=== PATIENT | male | born 1980 | race Caucasian/White ===

== ENCOUNTER 2019-11-11 16:29 | Observation (INO) | payer BC ==
[~2019-11-11 16:29] MED LIST: Iopamidol-370 76% 500 ML 1 ML ONE
[2019-11-11] MEDS ORDERED: Morphine 2 MG/ML SYRINGE ONE (16:45)
[2019-11-11] MEDS ORDERED: Morphine 4 MG/ML VIAL ONE (16:45)
[2019-11-11] MEDS ORDERED: Ondansetron PF 4 MG/2 ML Vial ONE ×2 (16:45→18:01)
[2019-11-11 16:54] LABS: #Basophils 0.1 thou/uL (0.0-0.2); #Eosinphils 0.1 thou/uL (0.0-0.7); #Lymphocytes 2.2 thou/uL (1.20-3.40); #Monocytes 0.6 thou/uL (0.11-0.59); #Neutrophils 3.4 thou/uL (1.40-6.50); %Eosinophils 1.9 % (0.0-10.0); %Lymphocytes 34.3 % (21.0-51.0); %Monocytes 8.8 % (0.0-10.0); Hemoglobin 15.8 g/dL (14.0-18.0); Mean Corpuscular HGB CONC 34.6 g/dL (32.0-36.0); Mean Corpuscular Hemoglobin 31.9 pg (27.0-31.0); Mean Corpuscular Volume 92.1 fL (78.0-98.0); Mean Platelet Volume 7.2 fL (7.4-10.4); Platelet Count 284 thou/uL (130-400); RBC Distribution Width 11.2 % (11.5-14.5); Red Blood Cell (RBC) Count 4.95 mill/uL (4.70-6.10); White Blood Cell (WBC) Count 6.3 thou/uL (4.8-10.8)
[2019-11-11 17:17] LABS: ALT (SGPT) 21 U/L (8-55); AST (SGOT) 21 U/L (5-34); Albumin 4.8 g/dL (3.5-5.0); Alkaline Phosphatase 81 U/L (40-110); Anion Gap 13 mmol/L (10-20); BUN (Urea Nitrogen) 10 mg/dL (8.9-20.6); Bilirubin, Total 0.6 mg/dL (0.2-1.2); Calc. Creatinine Clearance 0 mL/min (70-130); Calcium 10.1 mg/dL (7.8-10.44); Carbon Dioxide 25 mmol/L (22-29); Chloride 104 mmol/L (98-107); Estimated GFR-MDRD 68; Globulin 2.8 g/dL (2.4-3.5); Glucose 133 mg/dL (70-105); Lipase 47 U/L (8-78); Potassium 3.8 mmol/L (3.5-5.1); Protein, Total 7.6 g/dL (6.0-8.3); Sodium 138 mmol/L (136-145)
--- NOTE | 2019-11-11 17:19 | ULT ---
RIGHT UPPER QUADRANT ULTRASOUND CLINICAL HISTORY: Abdominal pain. COMPARISON: None FINDINGS: Liver:Normal echotexture without focal mass. Intrahepatic bile ducts: No intrahepatic or extrahepatic biliary dilation.; Common bile duct: 0.3 cm. Gallbladder: Normal appearing. Guajardo's sign:None Main portal vein:Patent with hepatopedal flow. Pancreas:Visualized pancreas appears normal. Right kidney: Right kidney measures 10.0 x 3.9 x 5.0 cm. No focal renal lesion or hydronephrosis. Additional findings: None. IMPRESSION: Normal RUQ ultrasound.
--- NOTE | 2019-11-11 17:47 | RAD ---
Chest AP view INDICATION: Right upper quadrant abdominal pain COMPARISON: None FINDINGS: Lungs: The lungs are clear Cardiac silhouette: The cardiomediastinal silhouette appears within normal limits. Pulmonary vasculature: Normal Pleural spaces: No pleural effusion or pneumothorax is demonstrated. Upper abdomen: No abnormality seen. Osseous structures: No acute osseous abnormality. Additional findings: None. IMPRESSION: No acute cardiopulmonary abnormality.
[2019-11-11 18:06] LABS: Bacteria/HPF None Seen HPF (None Seen); Bilirubin Negative (Negative); Blood, Urine Negative (Negative); Clarity Clear (Clear); Glucose, Urine (Dipstick) Normal (Negative); Leukocyte Negative Leu/uL (Negative); Nitrite Negative (Negative); Protein, Urine (Dipstick) 70 mg/dL (Neg-Trace); RBC/HPF 0-3 HPF (0-3); Squamous Epithelial None Seen HPF (0-3); Urobilinogen Normal mg/dL (Less than 2); WBC/HPF 0-3 HPF (0-3)
--- NOTE | 2019-11-11 18:34 | CT ---
CT ABDOMEN AND PELVIS WITH IV CONTRAST: 11/11/19 PROVIDED CLINICAL HISTORY: Right upper quadrant pain. FINDINGS: The visualized lung bases are free of significant opacity. The liver, spleen, pancreas, kidneys and adrenal glands demonstrate an unremarkable CT appearance. There is no bowel dilatation, inflammatory fat stranding, free fluid or free air apparent. There is m oderate colonic fecal retention. The appendix appears normal. The osseous structures demonstrate no concerning osteoblastic or osteolytic lesions. IMPRESSION: 1. No evidence for an acute abnormality. 2. Moderate colonic fecal retention, suggesting constipation. POS: MELLISA
[2019-11-11] MEDS ORDERED: Haloperidol Lactate 5 MG/ML VIAL ONE (19:59)
[2019-11-11 20:03] LABS: Troponin I Less than 0.010 ng/mL (< 0.028)
[2019-11-11 21:55] VITALS: BMI 17.5
[2019-11-11] MEDS ORDERED: Ondansetron ODT 4 MG TAB PO PRN (22:34)
[2019-11-11] MEDS ORDERED: Acetaminophen 325 MG TAB PO PRN (22:34)
[2019-11-11] MEDS ORDERED: Ondansetron PF 4 MG/2 ML Vial IVP PRN (22:34)
[2019-11-11] MEDS ORDERED: Calcium Carbonate 500 MG ChewTAB PO PRN (22:34)
[2019-11-11] MEDS ORDERED: Zolpidem Tartrate 5 MG TAB PO PRN (22:37)
[2019-11-11] MEDS ORDERED: Methocarbamol 500 MG TAB PO PRN (22:37)
[2019-11-11] MEDS ORDERED: Sodium Chloride 0.9% (PF) 10 ML VIAL FS PRN (22:42)
[2019-11-11] MEDS ORDERED: Pantoprazole 40 MG VIAL IVP SCH (22:45)
--- NOTE | 2019-11-11 22:53 | HP ---
PRIMARY CARE PHYSICIAN: Dr. Nadia Balbuena. CHIEF COMPLAINT: Nausea, vomiting, and right-sided abdominal pain. HISTORY OF PRESENT ILLNESS: Patient is a 39-year-old male with GERD, presented to the emergency room with above complaints. Over the last month or so, patient has right-sided abdominal pain that is progressively getting worse. The pain is intermittent, episodic regardless of any type of food he eats or position changes. He tried different antacids or changing his diet without much relief. He also reports decreased appetite with occasional diarrhea. He denies any constipation. He had a bowel movement earlier today. He continues to have nausea with intermittent vomiting. The last vomiting was 3 hours ago. The abdominal pain got worse in the last 24 hours, for which he presented to the emergency room. Please note that he was evaluated at his PCP's office last week and he was scheduled to get a right upper quadrant ultrasound next week. PAST MEDICAL HISTORY: 1. GERD. 2. History of prostatitis. 3. Anxiety. PAST SURGICAL HISTORY: 1. Left forearm muscle tendon repair. 2. Left thumb surgery. ALLERGIES: PATIENT IS ALLERGIC TO BUSPAR THAT CAUSES VOMITING AND DIZZINESS AND VICODIN THAT CAUSES NAUSEA WITH DIZZINESS AND SEVERE HEADACHE. SOCIAL HISTORY: Patient currently lives at home. He is . He works in the power plant. No tobacco, alcohol, or drug use. FAMILY HISTORY: Mother with hypertension. Diabetes also runs in his family. REVIEW OF SYSTEMS: All other review of systems reviewed and were found negative. CURRENT HOME MEDICATIONS: 1. Ambien as needed. 2. Zoloft 50 mg daily. 3. Robaxin as needed. 4. Wellbutrin extended release 300 mg daily. 5. Patient was recently started on Dexilant as well. PHYSICAL EXAMINATION: VITAL SIGNS: Vital signs in the emergency room showed temperature 97.5, respirations 22, pulse rate of 112 with a blood pressure of 120/71, and O2 saturation of 100% on room air. GENERAL: A 39-year-old male, in no apparent distress. Abdominal pain, improving. HEENT: Head, atraumatic and normocephalic. Sclerae anicteric. Dry mucous membranes. No oral lesion. NECK: Supple. No JVD. No carotid bruit. LUNGS: Clear to auscultation bilaterally. No wheezing, rales, or rhonchi. HEART: S1 and S2 present. Regular rate and rhythm. No rubs or gallops. ABDOMEN: Soft. There is tenderness in the right flank without any rebound or guarding. Bowel sounds are present. EXTREMITIES: No edema or calf tenderness. NEUROLOGY: Grossly nonfocal. Moves all 4 extremities. PSYCHIATRY: Alert, awake, and oriented x3. SKIN: Warm and dry. LYMPH NODES: No palpable lymph nodes in the neck. PERIPHERAL VASCULAR: Radial pulses palpable bilaterally. MUSCULOSKELETAL: No joint swelling or tenderness. LABORATORY FINDINGS: CBC showed WBC 6.3, hemoglobin 15.8, hematocrit 45.6, and platelet 284. Chemistry showed sodium 138, potassium 3.8, chloride 104, bicarb 25, BUN 10, and creatinine 1.2. Lactic acid 3.8. Troponin was negative. IMAGING STUDIES: CT scan of the abdomen and pelvis by my review showed moderate colonic fecal retention. Right upper quadrant ultrasound was normal. Chest x-ray by my review was negative for acute findings. EKG by my review showed sinus rhythm without significant ST-T wave changes. Medication administered in the emergency room; 1. Haldol 5 mg IV x1. 2. Zofran 4 mg x2. 3. IV fluids. 4. Morphine. IMPRESSION: 1. Nausea and vomiting with right-sided abdominal pain. Possibilities include colonic fecal retention. Peptic ulcer disease is a possibility as well. 2. Dehydration with lactic acidosis. 3. Anxiety. 4. History of gastroesophageal reflux disease. 5. Insomnia. PLAN: Patient will be monitored on the medical floor. We will start him on IV fluids. We will start him on MiraLAX for constipation. We will get input from Gastroenterology. We will keep him n.p.o. past midnight. We will start him on IV PPIs. Resume home medications. DISPOSITION: Probably in 24 hours. Job ID: [id number] [facility]
[2019-11-11] MEDS: Polyethylene Glycol 3350 17 GM Packet PO SCH (23:02)
[2019-11-11] MEDS: D5 1/2 NS w/20 mEq KCL 1,000 ML IV SCH (23:16)
[2019-11-11] MEDS: Sodium Chloride 0.9% 1,000 ML IV SCH (23:21)
[2019-11-12] MEDS: Polyethylene Glycol 3350 17 GM Packet PO SCH ×2 (03:44→06:44)
[2019-11-12] MEDS: Sodium Chloride 0.9% 1,000 ML IV SCH (05:47)
[2019-11-12] MEDS: Bupropion 150 MG XL TAB PO SCH (08:20)
[2019-11-12] MEDS: D5 1/2 NS w/20 mEq KCL 1,000 ML IV SCH (08:21)
[2019-11-12] MEDS: Pantoprazole 40 MG VIAL IVP SCH ×2 (08:21→20:22)
[2019-11-12] MEDS ORDERED: Lidocaine 1% PF 5 ML VIAL ONE (10:50)
[2019-11-12] MEDS ORDERED: Ondansetron PF 4 MG/2 ML Vial ONE (10:50)
[2019-11-12] MEDS ORDERED: Glycopyrrolate 0.2 MG/ML 5 ML SYRINGE ONE (10:50)
[2019-11-12] MEDS ORDERED: PROPOFOL 200 MG/20 ML VIAL ONE (10:50)
[2019-11-12] MEDS ORDERED: Rocuronium Bromide 10 MG/ML (10ML VIAL) ONE (10:50)
[2019-11-12] MEDS ORDERED: Ketorolac Tromethamine 30 MG/ML VIAL ONE (10:50)
[2019-11-12] MEDS ORDERED: Dexamethasone 20 MG/5 ML VIAL ONE (10:50)
[2019-11-12 13:21] LABS: Amphetamine Not Detected (NotDetected); Barbiturates Screen Not Detected (NotDetected); Benzodiazepine Screen Not Detected (NotDetected); Cocaine Metabolite Screen Not Detected (NotDetected); Medtox Control Line Valid? VALID (VALID); Medtox Reader # READER 1; Methadone Not Detected (NotDetected); Methamphetamine Not Detected (NotDetected); Opiate Screen Detected (NotDetected); Oxycodone Screen Not Detected (NotDetected); Phencyclidine (PCP) Not Detected (NotDetected); THC/Cannabinoid Screen Not Detected (NotDetected); Tricyclic Screen Not Detected (NotDetected)
--- NOTE | 2019-11-12 16:34 | NM ---
HEPATOBILIARY SCAN: HISTORY:Nausea vomiting with right upper quadrant abdominal pain RADIOPHARMACEUTICAL: 4.8 mCi Technetium 99m Mebrofenin injected intravenously Pharmaceutical: The patient was pretreated with 1.4 mcg of CCK 30 minutes prior to imaging. An additi onal 1.4 mcg of CCK was administered following filling of the gallbladder with radiotracer for gallbladder ejection fraction calculation. FINDINGS: There is normal tracer extraction by the liver with normal excretion into the biliary tracts and smal l bowel loops and normal filling of the gallbladder. The calculated gallbladder ejection fraction following an CCK administration measures 10%. IMPRESSION:Abnormal HIDA scan. 1. Filling of the gallbladder with radiotracer virtually excludes the presence of cystic duct obstruc tion. 2. Diminished gallbladder ejection fraction may reflect sequela of a chronic cholecystitis or gallbla dder dyskinesia. Gallbladder dyskinesia is favored in light of the patient's normal right upper quadrant abdominal ultrasound dated November 11, 2019.
--- NOTE | 2019-11-12 16:45 | PDOC.HOSPP ---
- Subjective Encounter Date: 11/12/19 Encounter Time: 10:15 Subjective: pt up in bed no complains. pt going for hida scan. will keep him npo. will continue ppi. gi consulted. - Objective Vital Signs & Weight: Vital Signs (12 hours) Temp Pulse Resp BP Pulse Ox 11/12/19 11:49 97.6 F 110 H 20 139/81 97 11/12/19 07:33 98.1 F 113 H 20 115/66 96 Weight Weight 155 lb 12.8 oz I&O: 11/11/19 11/12/19 11/13/19 05:59 06:59 06:59 Intake Total Output Total Balance Result Diagrams: 11/11/19 16:42 11/11/19 16:42 Hospitalist ROS - Review of Systems Cardiovascular: denies: chest pain, palpitations, orthopnea, paroxysmal noc. dyspnea, edema, light headedness, other Gastrointestinal: denies: nausea, vomiting, abdominal pain, diarrhea, constipation, melena, hematochezia, other Genitourinary: denies: dysuria, frequency, incontinence, hematuria, retention, other Musculoskeletal: denies: neck pain, shoulder pain, arm pain, back pain, hand pain, leg pain, foot pain, other - Medication Medications: Active Medications Generic Name Dose Route Start Last Admin Trade Name Freq PRN Reason Stop Dose Admin Bupropion HCl 300 mg 11/12/19 09:00 11/12/19 08:20 Wellbutrin Xl PO 300 mg QAM CONSTANZA Administration Pantoprazole Sodium 40 mg 11/12/19 09:00 11/12/19 08:21 Protonix IVP 40 mg Q12HR CONSTANZA Administration Sertraline HCl 50 mg 11/12/19 09:00 11/12/19 08:21 Zoloft PO 50 mg QAM CONSTANZA Administration Sodium Chloride 10 ml 11/11/19 21:50 11/11/19 23:12 Flush - Normal Saline IVF 10 ml PRN PRN Administration Saline Flush - Exam Neck: negative: supple, symmetric, no JVD, no thyromegaly, no lymphadenopathy, no carotid bruit, JVD Heart: negative: RRR, no murmur, no gallops, no rubs, normal peripheral pulses, irregular, diminshed peripheral pulses, murmur present, II/IV, III/IV Respiratory: negative: CTAB, no wheezes, no rales, no ronchi, normal chest expansion, no tachypnea, normal percussion, rales, rhonchi, tachypneic, wheezes Gastrointestinal: negative: soft, non-tender, non-distended, normal bowel sounds , no palpable masses, no hepatomegaly, no splenomegaly, no bruit, no guarding, no rigidity, tender to palpation, distended, diminished bowl sounds, voluntary guarding
--- NOTE | 2019-11-12 21:31 | CON ---
DATE OF CONSULTATION: REQUESTING PHYSICIAN: Dr. Donita Veliz. CONSULTING PHYSICIAN: Dr. Jose Arteaga. REASON FOR CONSULTATION: Cholecystitis. HISTORY OF PRESENT ILLNESS: Mr. Perez is a 39-year-old male, coming to the emergency room for evaluation of abdominal pain. The patient reports he has been having right upper quadrant abdominal pain for approximately 2 months now. The pain became more severe after meal. Pain comes and goes in characteristic. Pain does not get worse with change of position. The patient did not experience any nausea or vomiting earlier, however, yesterday, the pain is more severe with some episodes of nausea and vomiting, not resolved with position or medication. No headaches or dizziness. The patient denies fever. Denies chest pain or shortness of breath. REVIEW OF SYSTEMS: Noncontributory except per HPI. PAST MEDICAL HISTORY: GERD, depression, anxiety. PAST SURGICAL HISTORY: Left thumb surgery after an accident. ALLERGIES: OPIOIDS LIKE VICODIN, HYDROCODONE, CAUSE VOMITING AND DIZZINESS. SOCIAL HISTORY: The patient lives at home. Denies drug use. Denies alcohol. Denies smoking. PHYSICAL EXAMINATION: GENERAL: Currently, the patient is lying in bed comfortably with no acute respiratory distress. Pain is minimal. The patient is alert and awake. GCS 15. VITAL SIGNS: Temperature is 97.6, heart rate 110, respiratory rate 20, O2 saturation 97% on room air, blood pressure 139/81. LUNGS: Clear bilaterally. HEART: Regular rate and rhythm. ABDOMEN: Soft, nondistended. Mild tender when palpation of the right upper quadrant. Bowel sounds active. Apparently no signs of peritonitis. No guarding. No rebound. EXTREMITIES: Neurovascularly intact x4. NEUROLOGIC: No focal neurology deficits. LABORATORY DATA: White count 6.3, hemoglobin 15.8, platelet count 284,000. Sodium 138, potassium 3.8, creatinine 1.2, AST 21, ALT 21, total bilirubin 0.6, lipase is 437. Urine is normal. IMAGING DATA: HIDA scan shows no cystic duct obstruction, diminished gallbladder EF 10%. Abdominal ultrasound shows common bile duct 0.3 cm, gallbladder normal-appearing, no Guajardo sign. ASSESSMENT: 1. Chronic cholecystitis. 2. History of anxiety. 3. Gastroesophageal reflux disease. PLAN: The patient had been on n.p.o. since midnight. Dr. Arteaga will take the patient to the OR for laparoscopic cholecystectomy today. Continue pain control. Continue supportive care. Dr. Arteaga will see the patient after this dictation. Job ID: [id number] [facility]
[2019-11-12] MEDS ORDERED: Bupivacaine 0.25% HCL 30 ML VIAL ONE (21:41)
[2019-11-12] MEDS ORDERED: EPINEPHrine 1 MG/ML AMP ONE (21:41)
[2019-11-12] MEDS ORDERED: HYDROmorphone 0.5 MG/0.5 ML SYRINGE ONE (22:01)
[2019-11-12] MEDS ORDERED: Fentanyl 100 MCG/2 ML VIAL ONE (22:01)
[2019-11-12] MEDS ORDERED: traMADol HCl 50 MG TAB PO PRN (22:19)
[2019-11-12] MEDS ORDERED: Acetaminophen 500 MG TAB PO SCH (22:30)
--- NOTE | 2019-11-12 23:50 | OP ---
DATE OF PROCEDURE: 11/12/2019 PREOPERATIVE DIAGNOSIS: Biliary dyskinesia with chronic cholecystitis. POSTOPERATIVE DIAGNOSIS: Biliary dyskinesia with chronic cholecystitis with acute acalculous cholecystitis. PROCEDURE PERFORMED: Laparoscopic cholecystectomy. ANESTHESIA: General endotracheal. ESTIMATED BLOOD LOSS: 10 mL. FLUIDS GIVEN: 1200 mL crystalloids. COUNTS: Sponge and instrument counts were verified as correct x2. COMPLICATIONS: None apparent at the time of operation. INDICATIONS FOR OPERATION: A 39-year-old man presented with recurrent epigastric right upper quadrant abdominal pain associated with multiple episodes of nausea and emesis. Clinical radiographic examination was consistent with biliary dyskinesia with chronic cholecystitis, gallbladder ejection fraction noted at 10%. The patient is brought to the operating room for cholecystectomy. Findings are consistent with distended gallbladder in the usual anatomic location partially encased by omental adhesions. DESCRIPTION OF PROCEDURE: Informed consent was obtained from the patient who was brought to the operating room and placed in supine position. Following general anesthesia, abdomen was sterilely prepped and draped in usual fashion. The skin below the umbilicus was infiltrated with 0.25% Marcaine with epinephrine. A small curvilinear infraumbilical incision was made using 11 scalpel. Umbilical stalk was grasped with Brigid and elevated. A Veress needle was inserted through the incision and placed in peritoneal cavity through which the abdomen was insufflated with 3 L of CO2 gas. Intraabdominal pressure was noted at 2 mmHg. Veress needle inserted through the incision and placed in the cavity through which the abdomen was insufflated with 3 L of CO2 gas. Intraabdominal pressure noted at 1 mmHg. Following abdominal insufflation, Veress needle was removed and a 5 mm trocar introduced using a Visiport under laparoscopy. Laparoscopy confirmed proper placement of the port, no injuries to underlying structures. Additional laparoscopy reveals gallbladder in the usual anatomic location partially encased by omental adhesions. Under direct laparoscopy, a 12 mm epigastric and two 5 mm right lateral subcostal ports were placed after the overlying skin infiltrated with 0.25% Marcaine with epinephrine and an appropriate incision was made. The patient was placed in a reverse Trendelenburg position, rotated to his left. I introduced a [place] dissector with cautery using this take down omental adhesions. Prestige grasper was introduced through the right lateral subcostal port grasping the fundus of the gallbladder which was elevated cephalad. Omental adhesions were then completely taken down from remainder of the gallbladder. A second Prestige grasper introduced through the right medial subcostal port grasping the Dontrell's pouch which was retracted laterally. The cystic duct and arteries were dissected free from surrounding structures at the triangle of Calot. Critical view was obtained. The duct was divided between clips applying 2 clips proximally and 1 clip at the junction of the cystic duct and gallbladder. The cystic artery was divided between clips in a similar fashion. The gallbladder was removed from the liver bed using cautery with good hemostasis. It was delivered off the abdominal cavity using an EndoCatch. Operative site was inspected for good hemostasis. All clips remained in place. No bile stains present. Finding no other pathology, laparoscopy was terminated. Fascia of the epigastric port was closed using 0 Vicryl suture and Endoclosure device under laparoscopy. The abdomen was desufflated. All ports and instruments removed and accounted. Skin incision was closed using 4-0 Monocryl suture in subcuticular fashion. Dermabond was applied over incisional closure. The patient tolerated the operation without any apparent complication and was returned to recovery room in satisfactory condition. Job ID: [id number]
[2019-11-13] MEDS: Acetaminophen 500 MG TAB PO SCH ×2 (00:13→05:30)
[2019-11-13] MEDS: traMADol HCl 50 MG TAB PO PRN ×2 (03:20→04:14)
[2019-11-13 08:19] VITALS: BP 129/80; TEMP 97.6
[2019-11-13] MEDS: Pantoprazole 40 MG VIAL IVP SCH (09:00)
[2019-11-13] MEDS: Bupropion 150 MG XL TAB PO SCH (09:00)
--- NOTE | 2019-11-13 09:25 | CON ---
DATE OF CONSULTATION: 11/12/2019 REFERRING DOCTOR: Dr. Jay Taveras REASON FOR CONSULTATION: Abdominal pain, nausea and vomiting. HISTORY OF PRESENT ILLNESS: Ben Perez is a very pleasant 39-year-old male with abdominal pain off and on over the last 2 months. The pain usually is over the right abdomen, but more laterally will move towards the right flank. The patient also has some pain over the ribcage and also the pain in between the shoulder blade area. He has seen Dr. Balbuena off and on. There was some mention of doing abdominal sonogram. The patient's pain is usually very transient, last a few minutes, sometimes several hours. This pain was very severe and the pain accompanied with nausea and vomiting. No history of fever or chills. He came to the ER yesterday and had abdominal sonogram. The sonogram showed no gallstones. His abdominal CAT scan shows no pathology. At present time, he actually appears comfortable and the pain is almost gone. He has no history of dysuria, hematuria. There is no history of diarrhea or hematochezia. He had no relevant history. ALLERGIES: HE IS ALLERGIC TO BUSPAR AND CODEINE. SOCIAL HISTORY: He is . He does not smoke or drink alcohol. No history of drug use. MEDICAL ILLNESS: 1. Chronic acid reflux. 2. History of prostatitis. 3. Anxiety. SURGERIES: Left forearm muscle repair and left thumb surgery. No abdominal surgery. FAMILY HISTORY: Mother hypertension. There are multiple family members with diabetes. REVIEW OF SYSTEMS: A 10-point system reviewed. HEAD: No chronic headache, no dizziness. EYES: No diplopia. No impaired vision. EARS: No hearing loss. No discharge. NOSE: No nose bleed. THROAT: No sore throat or dysphagia. NECK: No stiffness or any limitation of movement. LUNGS: No chronic coughing. No hemoptysis. No dyspnea. CARDIOVASCULAR: No chest pain. No palpitation. No dyspnea, orthopnea, PND. GI: Abdominal pain, nausea, vomiting. No hematochezia. No diarrhea. No fever. : No dysuria, hematuria. MUSCULOSKELETAL, NEURO, ENDOCRINE AND HEMATOLOGICAL: Not known. PHYSICAL EXAMINATION: GENERAL: Appears very comfortable. He is thin built. VITAL SIGNS: Very stable. Afebrile. Pulse is 113, blood pressure is 115/66. HEENT: Conjunctivae are clear. NECK: Supple. No adenitis or thyromegaly noted. CARDIOVASCULAR SYSTEM: 1st and 2nd heart sound heard. LUNGS: Clear to auscultation. ABDOMEN: Soft. Abdomen is nondistended. Abdomen is tender over the right flank, but not over the right upper quadrant. There is no rebound or guarding. No organomegaly. No masses. Bowel sounds normal. LABORATORY DATA: CBC: WBC 6300, hemoglobin 15.8, hematocrit 45.6, MCV 92.1, platelet count 284,000, polymorphs 54, lymphocytes 34, monocytes 8. Serum chemistries normal. Lytes: Glucose 133, lactic acid 3.8, calcium 10.1, bilirubin 0.6, AST 21, ALT 21, alkaline phosphatase 81, lipase 47, albumin 4.8. Abdominal CAT scan is totally unremarkable. Abdominal sonogram showed no gallstone. CLINICAL IMPRESSION: A 39-year-old male with abdominal pain, nausea and vomiting. The pain is a lot more severe than the usual pain that he was having before. The pain has had going on for nearly 2 months. Workup has been negative. His has had similar symptoms in the past five years ago and had a HIDA scan and had her gall bladder surgery . She also tells me both her sisters had same problem and has had surgery. I recommendation HIDA scan with ejection fraction. I did talk to nuclear medicine and the HIDA scan will be done today. PLAN: For HIDA scan later on today and I will make further recommendation. If the HIDA scan comes abnormal, consider a surgical consult. Job ID: [id number] [facility]
--- NOTE | 2019-11-13 09:57 | DIS ---
DATE OF ADMISSION: 11/11/2019 DATE OF DISCHARGE: 11/13/2019 PRIMARY CARE PROVIDER: Nadia Balbuena MD. FINAL DIAGNOSES: Abdominal pain, nausea, vomiting, gastroesophageal reflux disease, chronic cholecystitis. DISCHARGE MEDICATIONS: Same as home medicines. 1. Robaxin 500 mg p.o. q.4 hours p.r.n. 2. Wellbutrin 300 mg a day. 3. Zoloft 50 mg a day. 4. Dexilant 60 mg a day. 5. Ambien 10 mg a day. ALLERGIES: BUSPAR AND HYDROCODONE. CODE STATUS: Full. PENDING AT TIME OF DISCHARGE: Past specimen on gallbladder. DIET: As tolerated. Discharge medicines already given. HOSPITAL COURSE: The patient admitted to the Hospitalist Service through [facility] with nausea, vomiting, right-sided abdominal pain, right upper quadrant. Ultrasound was normal. CBC was unremarkable. Chemistries unremarkable. CT scan of the abdomen and pelvis unremarkable. A hepatobiliary scan was done, consistent with chronic cholecystitis. The patient was seen in consultation by Donita Veliz GI; Jose Arteaga, General Surgery on 11/12/2019. The patient underwent laparoscopic cholecystectomy. He is now feeling well. His abdomen is benign. Dr. Arteaga has told him he can go home. He is being discharged for followup with Dr. Balbuena in 3 days. Followup to be arranged with Dr. Arteaga. Job ID: [id number]
== END 2019-11-13 10:32 | disposition home or self-care (01) ==
LOC: ERS 16:29 → 2SW 20:32
PROVIDERS: ADMIT Emergency Medicine; ATTEND Emergency Medicine
PROC: 0FT44ZZ Resection of Gallbladder, Percutaneous Endoscopic Approach (ICD-10-PCS; principal; 2019-11-12)
DX: K81.2 Acute cholecystitis with chronic cholecystitis (principal); K21.9 Gastro-esophageal reflux disease without esophagitis; F41.9 Anxiety disorder, unspecified; E87.2 Acidosis; E86.0 Dehydration; G47.00 Insomnia, unspecified; Z98.890 Other specified postprocedural states; Z88.8 Allergy status to other drugs, medicaments and biological substances; Z79.899 Other long term (current) drug therapy
CPT/HCPCS: 36415; 71045; 74177; 76705; 78227; 80053; 80306; 81003; 81015; 83605; 83690; 84484; 85025; 85379; 88304; 93005; 96361; 96374; 96375; 96376; A9537; C9113; G0378; J0171; J1100; J1170; J1630; J1885; J2001; J2270; J2405; J2704; J3010; Q9967; S0020

== ENCOUNTER 2022-09-03 12:58 | Outpatient (CLI) | payer BC | END 2022-09-03 12:59 | disposition home or self-care (01) | LOC: TBSIIMAG 12:58 | PROVIDERS: ATTEND Anesthesiology Pain Medicine | DX: M54.16 Radiculopathy, lumbar region (principal); M51.27 Other intervertebral disc displacement, lumbosacral region; M48.07 Spinal stenosis, lumbosacral region | CPT/HCPCS: 72148 ==

== ENCOUNTER 2022-10-28 07:06 | Day surgery (SDC) | payer BC ==
[2022-10-26 15:09] VITALS: BMI 24.7
[~2022-10-28 07:06] MED LIST changes: +Bupivacaine HCl 0.5%/Epinephrine 1:200,000/PF 30 ml Vial ONE; -Iopamidol-370 76% 500 ML 1 ML ONE; +Thrombin 5000 UNITS/5 ML VIAL ONE
[2022-10-28] MEDS ORDERED: Sodium Chloride 0.9% 100 ML ONE (07:51)
[2022-10-28] MEDS ORDERED: CEFAZOLIN 2 GM VIAL ONE (07:51)
[2022-10-28] MEDS ORDERED: fentaNYL PF 100 MCG/2 ML SYRINGE ONE (08:04)
[2022-10-28] MEDS ORDERED: Dexamethasone 20 MG/5 ML VIAL ONE (08:06)
[2022-10-28] MEDS ORDERED: PROPOFOL 200 MG/20 ML VIAL ONE (08:06)
[2022-10-28] MEDS ORDERED: Rocuronium Bromide 10 MG/ML (10ML VIAL) ONE (08:06)
[2022-10-28] MEDS ORDERED: Ondansetron PF 4 MG/2 ML Vial ONE ×2 (08:06→11:58)
[2022-10-28] MEDS ORDERED: SUGAMMADEX SODIUM 200 MG/2 ML VIAL ONE (09:00)
[2022-10-28] MEDS ORDERED: Fentanyl 100 MCG/2 ML VIAL ONE ×2 (09:32→10:14)
[2022-10-28] MEDS ORDERED: Tamsulosin HCl 0.4 MG CAP ONE (10:14)
== END 2022-10-28 13:00 | disposition home or self-care (01) ==
LOC: SDC 07:06
PROVIDERS: ATTEND Neurological Surgery
PROC: 0SB40ZZ Excision of Lumbosacral Disc, Open Approach (ICD-10-PCS; principal; 2022-10-28)
PROC: 01NR0ZZ Release Sacral Nerve, Open Approach (ICD-10-PCS; principal; 2022-10-28)
DX: M51.17 Intervertebral disc disorders with radiculopathy, lumbosacral region (principal); Z79.899 Other long term (current) drug therapy; Z88.5 Allergy status to narcotic agent; Z88.8 Allergy status to other drugs, medicaments and biological substances
CPT/HCPCS: J1100; J2405; J2704; J3010; J3490